=== PATIENT | female | born 1980 | race Caucasian/White ===

== ENCOUNTER 2018-07-16 11:26 | Emergency (ER) | payer OTHER ==
[2018-07-16 12:37] LABS: #Lymphocytes 1.4 thou/uL (1.20-3.40); #Monocytes 0.3 thou/uL (0.11-0.59); #Neutrophils 6.5 thou/uL (1.40-6.50); %Basophils 0.1 % (0.0-1.0); %Eosinophils 0.6 % (0.0-10.0); %Lymphocytes 16.6 % (21.0-51.0); %Monocytes 4.2 % (0.0-10.0); %Neutrophils 78.5 % (42.0-75.0); Hemoglobin 14.4 g/dL (12.0-16.0); Mean Corpuscular HGB CONC 34.8 g/dL (32.0-36.0); Mean Corpuscular Hemoglobin 31.3 pg (27.0-31.0); Mean Corpuscular Volume 89.9 fL (78.0-98.0); Mean Platelet Volume 6.8 fL (7.4-10.4); Platelet Count 352 thou/uL (130-400); RBC Distribution Width 11.1 % (11.5-14.5); Red Blood Cell (RBC) Count 4.62 mill/uL (4.20-5.40); White Blood Cell (WBC) Count 8.2 thou/uL (4.8-10.8)
[2018-07-16 12:58] LABS: ALT (SGPT) 14 U/L (8-55); AST (SGOT) 16 U/L (5-34); Albumin 4.5 g/dL (3.5-5.0); Alkaline Phosphatase 86 U/L (40-150); Anion Gap 13 mmol/L (10-20); BUN (Urea Nitrogen) 13 mg/dL (7.0-18.7); Bilirubin, Total 0.3 mg/dL (0.2-1.2); Calc. Creatinine Clearance 0 mL/min (70-130); Calcium 9.4 mg/dL (7.8-10.44); Carbon Dioxide 24 mmol/L (22-29); Chloride 105 mmol/L (98-107); Estimated GFR-MDRD 78; Globulin 3.3 g/dL (2.4-3.5); Glucose 121 mg/dL (70-105); Potassium 3.7 mmol/L (3.5-5.1); Protein, Total 7.8 g/dL (6.0-8.3); Sodium 138 mmol/L (136-145)
[2018-07-16 13:02] LABS: Lipase 50 U/L (8-78)
[2018-07-16] MEDS ORDERED: Ketorolac Tromethamine 30 MG/ML VIAL ONE (13:21)
[2018-07-16] MEDS ORDERED: Ondansetron PF 4 MG/2 ML Vial ONE ×2 (13:21→15:26)
[2018-07-16 13:44] LABS: Bilirubin Negative (Negative); Blood, Urine Negative (Negative); Clarity CLEAR (Clear); Glucose, Urine (Dipstick) Negative (Negative); Leukocyte Negative (Negative); Nitrite Negative (Negative); Protein, Urine (Dipstick) Negative (Neg-Trace); Urobilinogen 0.2 mg/dL (0.2-1.0); pH, Urine 7.5 (5.0-9.0)
[2018-07-16 13:51] LABS: Pregu Control Background? CLEAR/WHITE (CLR/WHITE); Pregu Control Bar Appear? YES (CONTROL BAR)
[2018-07-16 13:52] LABS: Pregnancy Test - Urine (BHCG) Negative (Negative)
--- NOTE | 2018-07-16 16:02 | CT ---
CT ABDOMEN AND PELVIS WITH IV CONTRAST: History: Abdominal pain. FINDINGS: Lung bases are clear. Gallbladder is surgically absent. Pancreas has a normal appearance. No enlarged lymph nodes or free fluid. No inflammation is visible. Degenerative changes lumbar spine. IMPRESSION: Status post cholecystectomy. No significant abnormalities are demonstrated. POS: [facility]
[2018-07-16] MEDS ORDERED: Morphine 4 MG/ML VIAL ONE (16:09)
== END 2018-07-16 16:27 | disposition home or self-care (01) ==
LOC: ERS 11:26
DX: K29.70 Gastritis, unspecified, without bleeding (principal); F32.9 Major depressive disorder, single episode, unspecified; Z79.899 Other long term (current) drug therapy
CPT/HCPCS: 36415; 51701; 74177; 80053; 81003; 81025; 83690; 85025; 96374; 96375; 96376; A4353; J1885; J2270; J2405

== ENCOUNTER 2018-12-22 11:57 | Outpatient (CLI) | payer OTHER ==
--- NOTE | 2018-12-22 16:09 | MRI ---
MRI LUMBAR SPINE WITH AND WITHOUT CONTRAST: 12/22/18 Multiplanar and multisequential imaging lumbar spine obtained. INDICATIONS: History of multiple sclerosis. Exam is performed prior to insertion of intrathecal pump. No comparison. FINDINGS: The lumbar vertebrae maintain normal height and alignment. The disc spaces are normally maintained. M ild degenerative signal changes at the L5-S1 disc space. There is a small focal protrusion centrally and paracentrally to the right at [id number] which indents t he anterior thecal sac and mildly displaces the traversing right S1 nerve root. No significant centra l canal or foraminal stenosis, although there is mild foraminal encroachment due to this asymmetric b ulge to the right. No other significant disc bulge or disc protrusion seen at the other lumbar levels. There is evidence of edema in the inner spinous ligaments at L4-5. There is enhancement at this site on postcontrast images. The findings would indicate inflammation at this location between the fourth and fifth spinous processes. No other abnormal enhancement. IMPRESSION: 1. Small focal disc protrusion centrally and paracentrally to the right at L5-S1. This does disp lace the traversing right S1 nerve root as described above. 2. Edema and inflammation between the L4 and L5 spinous processes posteriorly in the inner spino us ligamentous complex. There is enhancement at this location indicating inflammation. 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 POS: OFF
--- NOTE | 2018-12-22 16:10 | MRI ---
MRI thoracic spine with and without contrast: DATE: 12/22/2018 HISTORY: 38-year-old female with multiple sclerosis, relapsing remitting G 35 Abnormality of gait and mobility R 26.9 Frequent falls R 29.6 Sensory abnormality of thoracic dermatome distribution R 20.8 FINDINGS: There are numerous subacute, [id number] focal T2 hyperintense intramedullary signal abnormalities t hroughout the thoracic spinal cord. None of them have enhancement. There is no syringohydromyelia. There is moderate degenerative disc disease at several levels in the lower thoracic spine. No high-gr tanvir central stenosis, neural foraminal stenosis, cord impingement, or nerve impingement, at any level. Vertebral body heights are maintained. IMPRESSION: Evidence for multiple myeloma involvement of upper, mid, and lower thoracic spinal cord.
--- NOTE | 2018-12-22 16:31 | MRI ---
MRI CERVICAL SPINE WITH AND WITHOUT CONTRAST: 12/22/18 Multiplanar and multisequential imaging of the cervical spine obtained. Postcontrast images obtained. INDICATIONS: MS. Follow-up. COMPARISON: Comparison made to MRI cervical spine 09/2016. FINDINGS: The cervical vertebrae maintain normal height and alignment. Degenerative changes are again noted at the C5-6 disc level. There is a small disc protrusion at C5-6 which abuts and mildly indents the ant erior cord. This has a similar appearance to the prior study. No other significant disc bulge or prot rusion. Review of the cervical cord again shows an area of high T2 signal in the cord to the right of midline at the C7 level. This is unchanged when compared to the prior exam of 2016. No enhancement identifie d. No other cord lesion seen. IMPRESSION: 1. Small disc protrusion at C5-6 again noted. 2. Focal area of cord signal to the right of midline at C7 consistent with MS plaque is stable i n appearance when compared to 2017. POS: OFF
== END 2018-12-22 11:58 | disposition home or self-care (01) ==
LOC: SCSMRI 11:57
PROVIDERS: ATTEND Psychiatry & Neurology Neurology
DX: G35 Multiple sclerosis (principal); M50.222 Other cervical disc displacement at C5-C6 level; C90.00 Multiple myeloma not having achieved remission; M51.27 Other intervertebral disc displacement, lumbosacral region; R60.0 Localized edema
CPT/HCPCS: 72156; 72157; 72158

== ENCOUNTER 2019-01-11 15:04 | Emergency (ER) | payer OTHER ==
[~2019-01-11 15:04] MED LIST: ISOVUE-370 76%-LOCM 1 ML ONE
--- NOTE | 2019-01-11 16:22 | CT ---
CT Abdomen Pelvis W Con History: Abdominal pain Comparison: CT abdomen and pelvis July 2018 Findings: Lung bases are clear. No pericardial effusion. Prior cholecystectomy. Small sliding hiatal hernia. Aortoiliac contour is nonaneurysmal. Cardiac comparison examination is a hypodensity along the right adnexa with some faint peripheral enhancement. This is size slightly smaller than the July 2018 study. Small volume free fluid the pelvis. The appendix is visualized and is normal. Spleen, liver, pancreas are unremarkable. Aortoiliac contour is normal. No acute osseous abnormality. No hydronephrosis. Impression: 1. Normal appendix. 2. Likely physiologic free fluid within the pelvis. 3. Prior cholecystectomy.
[2019-01-11 16:34] LABS: #Basophils 0.1 thou/uL (0.0-0.2); #Eosinphils 0.1 thou/uL (0.0-0.7); #Lymphocytes 2.1 thou/uL (1.20-3.40); #Monocytes 0.5 thou/uL (0.11-0.59); #Neutrophils 7.5 thou/uL (1.40-6.50); %Basophils 0.7 % (0.0-1.0); %Eosinophils 0.5 % (0.0-10.0); %Lymphocytes 20.6 % (21.0-51.0); %Monocytes 5.3 % (0.0-10.0); %Neutrophils 72.9 % (42.0-75.0); Hemoglobin 12.9 g/dL (12.0-16.0); Mean Corpuscular HGB CONC 35.1 g/dL (32.0-36.0); Mean Corpuscular Hemoglobin 31.7 pg (27.0-31.0); Mean Corpuscular Volume 90.3 fL (78.0-98.0); Mean Platelet Volume 6.7 fL (7.4-10.4); Platelet Count 307 thou/uL (130-400); RBC Distribution Width 11.2 % (11.5-14.5); Red Blood Cell (RBC) Count 4.07 mill/uL (4.20-5.40); White Blood Cell (WBC) Count 10.2 thou/uL (4.8-10.8)
[2019-01-11] MEDS ORDERED: Ondansetron PF 4 MG/2 ML Vial ONE ×2 (16:35→22:21)
[2019-01-11] MEDS ORDERED: Morphine 4 MG/ML VIAL ONE ×2 (16:35→18:32)
[2019-01-11 16:58] LABS: Bilirubin Negative (Negative); Blood, Urine Negative (Negative); Clarity CLEAR (Clear); Glucose, Urine (Dipstick) Negative (Negative); Leukocyte Negative (Negative); Nitrite Negative (Negative); Protein, Urine (Dipstick) Negative (Neg-Trace); Specific Gravity, Urine 1.015 (1.002-1.036); Urobilinogen 0.2 mg/dL (0.2-1.0)
[2019-01-11 16:58] LABS: ALT (SGPT) 14 U/L (8-55); AST (SGOT) 15 U/L (5-34); Albumin 4.1 g/dL (3.5-5.0); Alkaline Phosphatase 91 U/L (40-150); Anion Gap 13 mmol/L (10-20); BUN (Urea Nitrogen) 8 mg/dL (7.0-18.7); Bilirubin, Total 0.2 mg/dL (0.2-1.2); Calc. Creatinine Clearance 0 mL/min (70-130); Calcium 8.8 mg/dL (7.8-10.44); Carbon Dioxide 26 mmol/L (22-29); Chloride 101 mmol/L (98-107); Estimated GFR-MDRD 82; Globulin 2.7 g/dL (2.4-3.5); Glucose 91 mg/dL (70-105); Lipase 31 U/L (8-78); Potassium 3.9 mmol/L (3.5-5.1); Protein, Total 6.8 g/dL (6.0-8.3); Sodium 136 mmol/L (136-145)
[2019-01-11 17:02] LABS: Pregnancy Test - Urine (BHCG) Negative (Negative); Pregu Control Background? CLEAR/WHITE (CLR/WHITE); Pregu Control Bar Appear? YES (CONTROL BAR); Specific Gravity 1.015 (1.002-1.036)
--- NOTE | 2019-01-11 18:16 | ULT ---
EXAM: Pelvic ultrasound HISTORY: Pelvic pain COMPARISON: None TECHNIQUE: Multiple grayscale and color Doppler images were obtained in a transabdominal pelvic ultra sound. Spectral analysis of the Doppler waveforms of the ovaries were performed. FINDINGS: The uterus has been removed. No free fluid is seen in the pelvis. RIGHT OVARY: Not visualized LEFT OVARY: Not visualized A Bailey catheter decompresses the urinary bladder. IMPRESSION: No significant pelvic abnormality status post hysterectomy
[2019-01-11] MEDS ORDERED: Ketorolac Tromethamine 30 MG/ML VIAL ONE (18:42)
[2019-01-11] MEDS ORDERED: traMADol HCl 50 MG TAB ONE (22:37)
[2019-01-11] MEDS ORDERED: Potassium Chloride 20 MEQ TAB ONE (22:41)
[2019-01-11] MEDS ORDERED: Methocarbamol 500 MG TAB PO SCH (22:45)
[2019-01-11] MEDS ORDERED: Pregabalin 75 MG CAP PO SCH (22:45)
--- NOTE | 2019-01-16 15:28 | EKG ---
Test Reason : Blood Pressure : / mmHG Vent. Rate : 094 BPM Atrial Rate : 094 BPM P-R Int : 148 ms QRS Dur : 064 ms QT Int : 352 ms P-R-T Axes : 059 030 055 degrees QTc Int : 440 ms Normal sinus rhythm Septal infarct , age undetermined Abnormal ECG Confirmed by KIM COLON MD ([id number]), film editor supervisor DAVID SAINI ([id number] on 01/16/2019 3:28:20 PM Referred By: Confirmed By:KIM COLON MD
== END 2019-01-12 05:14 | disposition short-term general hospital (02) ==
LOC: ERS 15:04
DX: R10.31 Right lower quadrant pain (principal); I47.1 Supraventricular tachycardia; F32.9 Major depressive disorder, single episode, unspecified; Z79.891 Long term (current) use of opiate analgesic; Z79.899 Other long term (current) drug therapy
CPT/HCPCS: 36415; 74177; 76856; 80053; 81003; 81025; 83690; 85025; 93005; 96361; 96374; 96375; 96376; J1885; J2270; J2405; Q9966

== ENCOUNTER 2019-03-17 05:17 | Emergency (ER) | payer OTHER ==
[2019-03-17 06:06] LABS: Bilirubin Negative (Negative); Blood, Urine Negative (Negative); Clarity Turbid (Clear); Glucose, Urine (Dipstick) Normal (Negative); Leukocyte 500 Leu/uL (Negative); Mucous/LPF Rare LPF (<2+); Nitrite 2+ (Negative); Protein, Urine (Dipstick) 20 mg/dL (Neg-Trace); Squamous Epithelial 0-3 HPF (0-3); Urobilinogen Normal mg/dL (Less than 2); WBC/HPF Greater than 50 HPF (0-3)
[2019-03-17 06:07] LABS: Bacteria/HPF 1+ HPF (None Seen)
[2019-03-17] MEDS ORDERED: Ondansetron PF 4 MG/2 ML Vial ONE (06:57)
[2019-03-17] MEDS ORDERED: Ketorolac Tromethamine 30 MG/ML VIAL ONE (06:57)
[2019-03-17 07:03] LABS: #Lymphocytes 1.9 thou/uL (1.20-3.40); #Monocytes 0.5 thou/uL (0.11-0.59); %Basophils 0.2 % (0.0-1.0); %Eosinophils 0.4 % (0.0-10.0); %Lymphocytes 16.9 % (21.0-51.0); %Monocytes 4.3 % (0.0-10.0); %Neutrophils 78.2 % (42.0-75.0); Hemoglobin 14.5 g/dL (12.0-16.0); Mean Corpuscular HGB CONC 34.8 g/dL (32.0-36.0); Mean Corpuscular Hemoglobin 31.2 pg (27.0-31.0); Mean Corpuscular Volume 89.6 fL (78.0-98.0); Mean Platelet Volume 7.1 fL (7.4-10.4); Platelet Count 338 thou/uL (130-400); RBC Distribution Width 11.8 % (11.5-14.5); Red Blood Cell (RBC) Count 4.64 mill/uL (4.20-5.40); White Blood Cell (WBC) Count 11.4 thou/uL (4.8-10.8)
[2019-03-17 07:23] LABS: ALT (SGPT) 10 U/L (8-55); AST (SGOT) 18 U/L (5-34); Albumin 4.5 g/dL (3.5-5.0); Alkaline Phosphatase 95 U/L (40-150); Anion Gap 14 mmol/L (10-20); BUN (Urea Nitrogen) 10 mg/dL (7.0-18.7); Bilirubin, Total 0.5 mg/dL (0.2-1.2); Calc. Creatinine Clearance 0 mL/min (70-130); Calcium 9.8 mg/dL (7.8-10.44); Carbon Dioxide 21 mmol/L (22-29); Chloride 106 mmol/L (98-107); Estimated GFR-MDRD 81; Globulin 3.4 g/dL (2.4-3.5); Glucose 105 mg/dL (70-105); Potassium 3.8 mmol/L (3.5-5.1); Protein, Total 7.9 g/dL (6.0-8.3); Sodium 137 mmol/L (136-145)
[2019-03-17] MEDS ORDERED: Fluconazole 100 MG TAB PO SCH (08:00)
== END 2019-03-17 08:10 | disposition home or self-care (01) ==
LOC: ERS 05:17
DX: T83.84XA Pain due to genitourinary prosthetic devices, implants and grafts, initial encounter (principal); F32.9 Major depressive disorder, single episode, unspecified; Z79.899 Other long term (current) drug therapy
CPT/HCPCS: 51702; 80053; 81003; 81015; 83605; 85025; 87077; 87086; 87186; 96361; 96374; 96375; J1885; J2405